=== PATIENT | female | born 2000 | race Caucasian/White ===

== ENCOUNTER 2021-08-23 08:17 | Inpatient (IN) | payer BC ==
[~2021-08-23 08:17] MED LIST: Bupivacaine 0.25% HCL 30 ML VIAL ONE; Bupivacaine PF 0.5% 30 ML VIAL ONE
[2021-08-23 08:42] VITALS: BMI 32.6
[2021-08-23 09:10] LABS: Fetal Membranes Rupture RUPTURE DETECTED (No Rupture)
[2021-08-23] MEDS ORDERED: Acetaminophen 500 MG TAB PO PRN (09:32)
[2021-08-23] MEDS ORDERED: hydrALAZINE 20 MG/ML VIAL SLOW IVP PRN (09:32)
[2021-08-23] MEDS ORDERED: Diphenoxylate HCl/Atropine Tablet PO PRN ×2 (09:32)
[2021-08-23] MEDS ORDERED: Methylergonovine 0.2 MG/ML VIAL IM PRN (09:32)
[2021-08-23] MEDS ORDERED: HYDROcodone/Acetaminophen 5/325 mg Tablet PO PRN ×2 (09:32)
[2021-08-23] MEDS ORDERED: Promethazine HCl 25 MG/ML VIAL IM PRN ×2 (09:32→23:26)
[2021-08-23] MEDS ORDERED: Ondansetron PF 4 MG/2 ML Vial IVP PRN ×2 (09:32→23:26)
[2021-08-23] MEDS ORDERED: Lidocaine 1% (PF) 30 ML VIAL SC PRN (09:32)
[2021-08-23] MEDS ORDERED: Butorphanol Tartrate 1 MG/ML VIAL SLOW IVP PRN (09:32)
[2021-08-23] MEDS ORDERED: Misoprostol 200 MCG TAB PR PRN (09:32)
[2021-08-23] MEDS ORDERED: Carboprost 250 MCG/ML AMP IM PRN (09:32)
[2021-08-23] MEDS: Lactated Ringer's 1,000 ML IV SCH ×2 (09:50→15:56)
[2021-08-23 10:07] LABS: Hemoglobin 12.4 g/dL (12.0-15.5); Mean Corpuscular HGB CONC 33.7 g/dL (32.0-36.0); Mean Corpuscular Hemoglobin 27.7 pg (27.0-33.0); Mean Corpuscular Volume 82.1 fl (81.6-98.3); Mean Platelet Volume 11.9 fl (7.4-10.4); Platelet Count 171 10x3/uL (150-450); RBC Distribution Width 13.3 % (11.5-14.5); Red Blood Cell (RBC) Count 4.48 10x6/uL (3.90-5.03); White Blood Cell (WBC) Count 14.2 10x3/uL (3.5-10.5)
[2021-08-23 10:49] LABS: Syphilis Antibody Nonreactive (Nonreactive); Syphilis Antibody Index 0.27 S/CO (<1.00 Non-Reactive)
[2021-08-23 10:50] LABS: Hep B Surf Ag Non-Reactive S/CO (NonReactive)
[2021-08-23 10:53] LABS: HBSAg Index 0.27 S/CO (0-0.99)
[2021-08-23 11:57] LABS: SARS-CoV-2 NAA Rapid Test Not Detected (NotDetected)
[2021-08-23] MEDS: Misoprostol 100 MCG TAB PO SCH ×3 (13:05→21:55)
[2021-08-23] MEDS ORDERED: Fentanyl 2 mcg/Bup 0.1% Cadd 100 ML ONE (22:47)
[2021-08-23] MEDS ORDERED: Calcium Carbonate 500 MG ChewTAB PO PRN (22:54)
[2021-08-23] MEDS ORDERED: diphenhydrAMINE 50 MG/ML VIAL IVP PRN (23:26)
[2021-08-23] MEDS ORDERED: Naloxone HCl 0.4 mg/ml Vial IVP PRN ×2 (23:26)
[2021-08-23] MEDS ORDERED: Lactated Ringer's 500 ML IV PRN (23:26)
[2021-08-23] MEDS ORDERED: ePHEDrine Sulfate 50 MG/10 ML VIAL SLOW IVP PRN (23:26)
[2021-08-23] MEDS ORDERED: Hydrocerin (Eucerin) Cream 120 gm Jar TOP PRN (23:26)
[2021-08-23] MEDS ORDERED: Fentanyl 2 mcg/Bupivacaine 0.1% Cassette 100 ML EPIDURAL SCH (23:30)
[2021-08-23] MEDS ORDERED: Communication Order-Pharmacy FS SCH (23:30)
[2021-08-24] MEDS: Lactated Ringer's 1,000 ML IV SCH ×2 (07:57→16:07)
[2021-08-24] MEDS: NS w/ Oxytocin 30 units 500 ML IV SCH ×2 (10:07→12:08)
[2021-08-24] MEDS ORDERED: Zolpidem Tartrate 5 MG TAB PO PRN (10:47)
[2021-08-24] MEDS ORDERED: Milk Of Magnesia 30 ML UDCUP PO PRN (10:47)
[2021-08-24] MEDS ORDERED: Boostrix 0.5 ML (Tdap) VIAL IM ONE (10:47)
[2021-08-24] MEDS ORDERED: hydrALAZINE 20 MG/ML VIAL SLOW IVP PRN (10:47)
[2021-08-24] MEDS ORDERED: Bisacodyl 10 MG SUPP PR PRN (10:47)
[2021-08-24] MEDS: Acetaminophen 325 MG TAB PO PRN ×2 (14:00→18:46)
[2021-08-24] MEDS: Misoprostol 100 MCG TAB PO SCH ×2 (16:07→16:08)
[2021-08-24] MEDS: Ferrous Sulfate 325 MG TAB PO SCH (18:47)
[2021-08-25] MEDS: Acetaminophen 325 MG TAB PO PRN ×3 (00:47→15:27)
[2021-08-25] MEDS: Docusate 100 MG CAP PO SCH ×3 (00:48→21:07)
[2021-08-25] MEDS ORDERED: Benzocaine-Menthol 82.5 ML CAN TOP PRN (04:56)
[2021-08-25 07:20] LABS: Hemoglobin 11.2 g/dL (12.0-15.5); Mean Corpuscular HGB CONC 32.7 g/dL (32.0-36.0); Mean Corpuscular Hemoglobin 27.8 pg (27.0-33.0); Mean Corpuscular Volume 84.9 fl (81.6-98.3); Mean Platelet Volume 11.5 fl (7.4-10.4); Platelet Count 174 10x3/uL (150-450); RBC Distribution Width 13.5 % (11.5-14.5); Red Blood Cell (RBC) Count 4.03 10x6/uL (3.90-5.03); White Blood Cell (WBC) Count 20.7 10x3/uL (3.5-10.5)
[2021-08-25 07:41] LABS: MDiff Complete? YES; Platelet Morphology Comment Appears Adequate
[2021-08-25 07:44] LABS: Band 10 % (5-11); Lymphocytes 14 % (21-51); Monocytes 7 % (0-10); Neutrophil 69 % (42-75)
[2021-08-25] MEDS: Ferrous Sulfate 325 MG TAB PO SCH ×2 (07:54→18:41)
[2021-08-26] MEDS: Ferrous Sulfate 325 MG TAB PO SCH (07:30)
[2021-08-26] MEDS: Docusate 100 MG CAP PO SCH (08:15)
[2021-08-26 08:34] VITALS: BP 132/91; TEMP 99.5
== END 2021-08-26 10:55 | disposition home or self-care (01) | DRG 807 ==
LOC: CSHLD/OP 08:17 → CSHLD 20:07 → CSHPP 08-24 12:16
PROVIDERS: ADMIT Obstetrics & Gynecology; ATTEND Obstetrics & Gynecology
PROC: 10E0XZZ Delivery of Products of Conception, External Approach (ICD-10-PCS; principal; 2021-08-24)
PROC: 0HQ9XZZ Repair Perineum Skin, External Approach (ICD-10-PCS; 2021-08-24)
PROC: 3E0P7VZ Introduction of Hormone into Female Reproductive, Via Natural or Artificial Opening (ICD-10-PCS; 2021-08-24)
DX: O70.0 First degree perineal laceration during delivery (principal); Z37.0 Single live birth; Z3A.37 37 weeks gestation of pregnancy; Z20.822 Contact with and (suspected) exposure to COVID-19
CPT/HCPCS: 36415; 51702; 84112; 85025; 85027; 86780; 86850; 86900; 86901; 87340; 99285; J0595; J2590; J7120; S0020; U0002